=== PATIENT | female | born 1940 | race Caucasian/White ===

== ENCOUNTER → 2019-08-03 | Outpatient (CLI) | payer OTHER ==
[~2019-08-03] MED LIST: REGADENOSON 0.4 MG/5 ML DISP.SYRIN. IV ONE
--- NOTE | 2019-08-03 12:18 | CARD ---
MR#: [id number] Date of Study: 08/03/2019 Ordering Physician: HAI SHERIDAN, Referring Physician: HAI SHERIDAN Tech: Eileen Perez RDCS APPROVED REPORT EXAM: Two-dimensional and M-mode echocardiogram with Doppler and color Doppler. Other Information Quality : AverageHR: 72bpm Rhythm : NSR INDICATION Dyspnea 2D DIMENSIONS RVDd3.0 (2.9-3.5cm)Left Atrium(2D)3.5 (1.6-4.0cm) IVSd1.3 (0.7-1.1cm)Aortic Root(2D)2.8 (2.0-3.7cm) LVDd4.1 (3.9-5.9cm)LVOT Diameter1.8 (1.8-2.4cm) PWd0.9 (0.7-1.1cm)LVDs2.8 (2.5-4.0cm) FS (%) 31.7 %SV44.2 ml LVEF(%)60.2 (>50%) M-Mode DIMENSIONS Left Atrium(MM)2.71 (2.5-4.0cm)Aortic Root2.65 (2.2-3.7cm) Aortic Valve AoV Peak Sunny.124.1cm/sAoV VTI26.8cm AO Peak GR.6.2mmHgLVOT Peak Sunny.81.5cm/s AO Mean GR.3mmHgAVA (VMAX)1.73cm2 THERON (VTI)1.70cm2 Mitral Valve MV E Khasvazf54.1cm/sMV DECEL ELZK467fo MV A Wsqxmfrf99.2cm/sE/A Ratio1.2 Pulmonary Valve PV Peak Pfdcdieb09.8cm/s Tricuspid Valve TR P. Vvyytdsa594hr/sRAP UUJDNJNQ6yeKy TR Peak Gr.41ynXaQALQ09dfSd Pulmonary Vein S1 Dxltxyzx53.7cm/sD2 Proedgiu53.7cm/s PVa pdwdoemr30ycjv LEFT VENTRICLE The left ventricle is normal size. Proximal septal thickening is noted. The left ventricular systolic function is normal. The Ejection Fraction is 55-60%. There is normal LV segmental wall motion. Trans mitral Doppler flow pattern is Grade II-pseudonormal filling dynamics. RIGHT VENTRICLE The right ventricle is normal size. There is normal right ventricular wall thickness. The right ventr icular systolic function is normal. ATRIA The left atrium size is normal. The right atrium size is normal. The interatrial septum is intact wit h no evidence for an atrial septal defect or patent foramen ovale as noted on 2-D or Doppler imaging. AORTIC VALVE The aortic valve is normal in structure and function. The aortic valve is trileaflet. Doppler and Col or Flow revealed trace aortic regurgitation. There is no significant aortic valvular stenosis. There is no aortic valvular vegetation. MITRAL VALVE The mitral valve is normal in structure and function. There is no evidence of mitral valve prolapse. There is no mitral valve stenosis. Doppler and Color-flow revealed mild mitral regurgitation. TRICUSPID VALVE The tricuspid valve is normal in structure and function. Doppler and Color Flow revealed mild tricusp id regurgitation. The PA pressure was estimated at 38 mmHg. There is no tricuspid valve prolapse or v egetation. There is no tricuspid valve stenosis. PULMONIC VALVE The pulmonary valve is normal in structure and function. Doppler and Color Flow revealed no pulmonic valvular regurgitation. There is no pulmonic valvular stenosis. GREAT VESSELS The aortic root is normal in size. The ascending aorta is normal in size. The IVC is normal in size a nd collapses >50% with inspiration. PERICARDIAL EFFUSION There is no evidence of significant pericardial effusion. Critical Notification Critical Value: No <Conclusion> The left ventricular systolic function is normal. The Ejection Fraction is 55-60%. There is normal LV segmental wall motion. Mild mitral regurgitation. Mild tricuspid regurgitation. The PA pressure was estimated at 38 mmHg. There is no evidence of significant pericardial effusion. Signed by : Hai Sheridan, Electronically Approved : 08/03/2019 12:17:34
--- NOTE | 2019-08-03 13:32 | RAD ---
MR#: [id number] Date of Study: 08/03/2019 Ordering Physician: HAI VICTOR Referring Physician: ROBINSON QUINTANILLA Tech: ALIZA Christianson APPROVED REPORT Test Type: Pharmacological Stress Nurse/Tech: Eufemia Murdock R.N. Test Indications: BALDERRAMA Cardiac History: htn Medications: See Electronic Medical Record Medical History: See Electronic Medical Record Resting ECG: SR w/inverted T wave lead III Resting Heart Rate: 65 bpm Resting Blood Pressure: 163/83mmHg Pretest Chest Pain: No chest pain Nurse/Tech Notes S1S2, lungs CTA Consent: The procedure was explained to the patient in lay terms. Informed consent was witnessed. Feliberto eout was entered into [employer]. History and Stress Test performed by JULEE Land, ARRT (R) (N) Pharm. Details Pharmacologic stress testing was performed using 0.4mg per 5ml of regadenoson given intravenously ove r 7-10 seconds. Stress Symptoms SOB, small H/A POST EXERCISE Reason for Termination: Infusion complete Max HR: 114 bpm Max Blood Pressure: 181/72mmHg Blood Pressure response to exercise: Normal blood pressure response during stress. Heart Rate response to exercise: wnl Chest Pain: No. Arrhythmia: No. ST Change: No. INTERPRETATION Stress EKG Conclusion: Baseline EKG showed sinus rhythm. No ischemic changes at peak stress. No arr hythmias. Imaging Protocol IMAGE PROTOCOL: Rest Tc-99m/stress Tc-99m 1 day Rest: Stress: Viability: Radiopharm.Tc99m CxhmjjqdlBx25w Sestamibi Dose10.5mCi 32.8mCi Duration 15min. 12min. Img Date 08/03/2019 08/03/2019 Inj-Img Ncgw17byd. 60min. Rest Admin Site:IV - Right AntecubitalAdministrator:ALIZA Christianson Stress Admin Site: IV - Right AntecubitalAdministrator: JULEE Land, ARRT (R)(N) STRESS DATA End Diast. Vol.55.0mlLVEDV index BSA31.0ml End Syst. Vol.9.0mlLVESV index BSA5.0ml Myocardial Zgav981.0gEject. Iqeussec45.0% Stress Scores Regional WT0.00Summed WT1.00 Regional WM0.00Summed WM0.00 Study quality was good. Left Ventricular size was Normal at Rest and Stress. Lung uptake was . Left Ventricular ejection fraction is 84%. The rest and stress images show normal perfusion, normal contraction and thickening. LV Perf. Quant 17 Seg. SSS0.00 17 Seg. SRS38.00 17 Seg. SDS0.00 Stress Defect Extent (% LAD)0.00Rest Defect Extent (% LAD)83.80Rev. Defect Extent (% LAD)0.00 Stress Defect Extent (% LCX) 0.00Rest Defect Extent (% LCX)93.80Rev. Defect Extent (% LCX)0.00 Stress Defect Extent (% RCA)0.00Rest Defect Extent (% RCA)70.00Rev. Defect Extent (% RCA)0.00 Stress Defect Extent (% GORGE)0.00Rest Defect Extent (% GORGE)79.80Rev. Defect Extent (% GORGE)0.00 Conclusion 1. Regadenoson cardioisotope stress test did not show any evidence of ischemia or infarct. 2. Normal left ventricular systolic function with ejection fraction calculated at 84%. 3. Low risk for cardiac events. Signed by : Hai Victor, Electronically Approved : 08/03/2019 13:31:54
== END | disposition home or self-care (01) ==
LOC: NM 09:19
PROVIDERS: ATTEND Internal Medicine Cardiovascular Disease
DX: I08.1 Rheumatic disorders of both mitral and tricuspid valves (principal); I10 Essential (primary) hypertension
CPT/HCPCS: 78452; 93017; 93306; A9500; J2785

== ENCOUNTER → 2020-11-08 | Outpatient (CLI) | payer MEDICARE, OTHER ==
--- NOTE | 2020-11-08 13:05 | CARD ---
MR#: [id number] Date of Study: 11/08/2020 Ordering Physician: HAI VICTOR, Referring Physician: HAI VICTOR Tech: Sue Paris [facility] APPROVED REPORT EXAM: Two-dimensional and M-mode echocardiogram with Doppler and color Doppler. Other Information Quality : GoodHR: 66bpm Rhythm : NSR INDICATION Hypertension/HCVD RISK FACTORS Hypertension 2D DIMENSIONS RVDd2.6 (2.9-3.5cm)Left Atrium(2D)3.7 (1.6-4.0cm) IVSd0.9 (0.7-1.1cm)Aortic Root(2D)3.3 (2.0-3.7cm) LVDd4.3 (3.9-5.9cm)LVOT Diameter2.1 (1.8-2.4cm) PWd0.9 (0.7-1.1cm)LVDs2.5 (2.5-4.0cm) FS (%) 42.0 %SV61.7 ml LVEF(%)73.2 (>50%) Aortic Valve AoV Peak Sunny.114.8cm/sAoV VTI24.9cm AO Peak GR.5.3mmHgLVOT Peak Sunny.98.6cm/s AO Mean GR.3mmHgAVA (VMAX)3.07cm2 Mitral Valve MV E Acvtyfss06.3cm/sMV DECEL XOFZ545cu MV A Iqniavwq75.3cm/sE/A Ratio0.9 Pulmonary Valve PV Peak Mxogtgbn33.4cm/s Tricuspid Valve TR P. Vuleotcz471tu/sTR Peak Gr.24mmHg Pulmonary Vein S1 Hobfmxap34.5cm/sD2 Ffpskkpp96.6cm/s PVa ibxtpspe300sfmo LEFT VENTRICLE The left ventricle is normal size. There is normal left ventricular wall thickness. The left ventricu lar systolic function is normal. Estimated ejection fraction 55-60%. There is normal LV segmental wa ll motion. Transmitral Doppler flow pattern is Grade I-abnormal relaxation pattern. RIGHT VENTRICLE The right ventricle is normal size. There is normal right ventricular wall thickness. The right ventr icular systolic function is normal. ATRIA The left atrium size is normal. The right atrium size is normal. The interatrial septum is intact wit h no evidence for an atrial septal defect or patent foramen ovale as noted on 2-D or Doppler imaging. AORTIC VALVE The aortic valve is normal in structure and function. Doppler and Color Flow revealed no significant aortic regurgitation. There is no significant aortic valvular stenosis. MITRAL VALVE The mitral valve is normal in structure and function. There is no evidence of mitral valve prolapse. There is no mitral valve stenosis. Doppler and Color-flow revealed trace to mild mitral regurgitation . TRICUSPID VALVE The tricuspid valve is normal in structure and function. Doppler and Color Flow revealed mild tricusp id valve regurgitation. Estimated PAP 27 mmHg. PULMONIC VALVE The pulmonary valve is normal in structure and function. Doppler and Color Flow revealed trace to mil d pulmonic valvular regurgitation. GREAT VESSELS The aortic root is normal in size. The pulmonary artery is normal. The IVC is normal in size and karmen apses >50% with inspiration. PERICARDIAL EFFUSION There is no evidence of significant pericardial effusion. Critical Notification Critical Value: No <Conclusion> The left ventricular systolic function is normal. Estimated ejection fraction 55-60%. There is normal LV segmental wall motion. Transmitral Doppler flow pattern is Grade I-abnormal relaxation pattern. Trace to mild mitral regurgitation. Mild tricuspid valve regurgitation. Estimated PAP 27 mmHg. There is no evidence of significant pericardial effusion. Signed by : Hai Victor, Electronically Approved : 11/08/2020 13:05:30
--- NOTE | 2020-11-13 10:04 | RAD ---
MR#: [id number] Date of Study: 11/08/2020 Ordering Physician: HAI VICTOR, Referring Physician: HAI VICTOR, Tech: Henrietta Iraheta RDMS, ROSEMARIE, RTR APPROVED REPORT Patient Location : OUT-PATIENT Indications Lower Extremity Edema : Bilateral Findings Grayscale images of the bilateral saphenofemoral junctions are grossly unremarkable. The right great saphenous vein measures 5.6 mm and the left great saphenous vein measures 3.8 mm. Bilateral greater saphenous veins did not demonstrate any evidence of reflux and appear to be compressible. The left lesser saphenous vein measures approximately 5.2 mm and has nonocclusive thrombus likely chr onic in the proximal to mid segment, no significant reflux noted in the left lesser saphenous vein. The right lesser saphenous vein measures 3.9 mm and has no significant reflux. No evidence of clot with normal compressibility of the left popliteal vein. Left-sided Solitario's cyst is noted measuring 4.2 x 2.4 x 1.2 cm Critical Notification Critical Value: No <Conclusion> 1. No reflux in the bilateral greater and right lesser saphenous veins. 2. Left lesser saphenous vein has a nonocclusive thrombus likely chronic without extension to the po pliteal segment at this time. 3. Incidental finding is noted of a left sided Solitario's cyst measuring 4.2 x 2.4 x 1.2 cm. Signed by : Epifanio Thapa, Electronically Approved : 11/13/2020 10:04:20
== END ==
LOC: ECHO 07:43
PROVIDERS: ATTEND Internal Medicine Cardiovascular Disease
DX: I08.8 Other rheumatic multiple valve diseases (principal); I82.812 Embolism and thrombosis of superficial veins of left lower extremity; M71.22 Synovial cyst of popliteal space [Baker], left knee; I10 Essential (primary) hypertension
CPT/HCPCS: 93306; 93970

== ENCOUNTER → 2022-01-09 | Outpatient (CLI) | payer MEDICARE ==
--- NOTE | 2022-01-09 14:09 | CARD ---
MR#: [id number] Date of Study: 01/09/2022 Ordering Physician: HAI VICTOR, Referring Physician: HAI VICTOR Tech: Sue Paris [facility] APPROVED REPORT EXAM: Two-dimensional and M-mode echocardiogram with Doppler and color Doppler. Other Information Quality : AverageHR: 60bpm Rhythm : NSR INDICATION Hypertension/HCVD RISK FACTORS Hypertension Obesity 2D DIMENSIONS RVDd2.5 (2.9-3.5cm)Left Atrium(2D)3.4 (1.6-4.0cm) IVSd0.9 (0.7-1.1cm)Aortic Root(2D)3.0 (2.0-3.7cm) LVDd4.2 (3.9-5.9cm)LVOT Diameter2.0 (1.8-2.4cm) PWd1.1 (0.7-1.1cm)LVDs2.5 (2.5-4.0cm) FS (%) 41.0 %SV58.2 ml Aortic Valve AoV Peak Sunny.113.1cm/sAoV VTI28.5cm AO Peak GR.5.1mmHgLVOT Peak Sunny.98.6cm/s AO Mean GR.3mmHgAVA (VMAX)2.85cm2 Mitral Valve MV E Qpjiberh84.2cm/sMV DECEL GYQK116pf MV A Kxnqfulw63.9cm/sE/A Ratio1.2 Pulmonary Valve PV Peak Wuelrpdu53.7cm/s Tricuspid Valve TR P. Zsyztare031mp/sTR Peak Gr.28mmHg LEFT VENTRICLE The left ventricle is normal size. There is normal left ventricular wall thickness. The left ventricu lar systolic function is normal and the ejection fraction is within normal range. LV ejection fractio n of 55 to 60%. There is normal LV segmental wall motion. The left ventricular diastolic function and filling is normal for age. RIGHT VENTRICLE The right ventricle is normal size. There is normal right ventricular wall thickness. The right ventr icular systolic function is normal. ATRIA The left atrium size is normal. The right atrium size is normal. The interatrial septum is intact wit h no evidence for an atrial septal defect or patent foramen ovale as noted on 2-D or Doppler imaging. AORTIC VALVE The aortic valve is mildly thickened but opens well. Doppler and Color Flow revealed no significant a ortic regurgitation. There is no significant aortic valvular stenosis. MITRAL VALVE The mitral valve is normal in structure and function. There is no evidence of mitral valve prolapse. There is no mitral valve stenosis. Doppler and Color-flow revealed mild mitral regurgitation. TRICUSPID VALVE The tricuspid valve is normal in structure and function. Doppler and Color Flow revealed no tricuspid valve regurgitation noted. There is no tricuspid valve stenosis. PULMONIC VALVE The pulmonary valve is normal in structure and function. Doppler and Color Flow revealed mild pulmoni c valvular regurgitation. GREAT VESSELS The aortic root is normal in size. The ascending aorta is normal in size. The IVC is normal in size a nd collapses >50% with inspiration. PERICARDIAL EFFUSION There is no evidence of significant pericardial effusion. Critical Notification Critical Value: No <Conclusion> The left ventricle is normal size. The left ventricular systolic function is normal and the ejection fraction is within normal range. LV ejection fraction of 55 to 60%. Doppler and Color Flow revealed no significant aortic regurgitation. There is no significant aortic valvular stenosis. Doppler and Color-flow revealed mild mitral regurgitation. Doppler and Color Flow revealed no tricuspid valve regurgitation noted. Signed by : Emerson Connell MD Electronically Approved : 01/09/2022 14:08:40
== END ==
LOC: ECHO 10:34
PROVIDERS: ATTEND Internal Medicine Cardiovascular Disease
DX: I08.8 Other rheumatic multiple valve diseases (principal); I10 Essential (primary) hypertension
CPT/HCPCS: 93306; C8929